=== PATIENT | male | born 1970 | race Hispanic/Latino ===

== ENCOUNTER 2017-03-30 12:38 | Inpatient (IN) | payer OTHER ==
[~2017-03-30] VITALS: Ht 165.1 cm; Wt 85.0 kg
[2017-03-30 13:40] LABS: ADD MIUA? YES; BILIRUBIN NEGATIVE; BLOOD SMALL; COLOR YELLOW ((YELLOW)); GLUCOSE (STRIP) NEGATIVE; KETONES NEGATIVE; LEUKOCYTES NEGATIVE; NITRITE NEGATIVE; PROTEIN (STRIP) 100; SPECIFIC GRAVITY 1.015 (1.000-1.030); UROBILINOGEN 0.2 MG/DL (0.2-1.0)
[2017-03-30 13:52] LABS: BACTERIA RARE /HPF; EPITHELIAL CELLS RARE /HPF; GRANULAR CASTS 0-5 /LPF; MUCUS TRACE /LPF; RED BLOOD CELLS 0-5 /HPF (0-5); UCUL ADDED? NO; WHITE BLOOD CELLS 0-5 /HPF (0-5)
[2017-03-30 13:59] LABS: HEMATOCRIT 48.5 % (38.0-50.0); MCH 30.7 PG (29.0-34.0); MCHC 33.4 G/DL (30.0-36.0); MEAN PLAT.VOLUME 9.2 uM^3 (9.0-12.4); PLATELET COUNT 282 K/uL (156-360); RBC DIS.WIDTH-CV 12.6 % (11.8-14.6); RBC DIS.WIDTH-SD 43.2 % (39-53); RED BLOOD COUNT 5.27 M/uL (4.00-5.50); WHITE BLOOD COUNT 17.1 K/uL (4.1-10.2)
[2017-03-30 14:12] LABS: CHLORIDE 105 mEq/L (99-109); POTASSIUM 3.8 mEq/L (3.7-5.4); SODIUM 140 mEq/L (136-147)
[2017-03-30 14:15] LABS: GLUCOSE 99 mg/dL (70-99)
[2017-03-30 14:16] LABS: ANION GAP 7 MEQ/L (2-14)
[2017-03-30 14:18] LABS: ALKALINE PHOSPHATASE 78 IU/L (3-129); GFR ESTIMATE (CALCULATED) > 59 mL/min/
[2017-03-30 14:20] LABS: UREA NITROGEN (BUN) 10 mg/dL (9-23)
[2017-03-30 14:22] LABS: LIPASE 20 U/L (1.0-51.0)
[2017-03-30 14:31] LABS: TOTAL BILIRUBIN 0.8 mg/dL (0.0-1.0)
[2017-03-30 21:06] VITALS: BP 131/67
[2017-03-31 04:08] VITALS: BP 131/68
[2017-03-31 05:47] LABS: HEMATOCRIT 44.6 % (38.0-50.0); MCH 31.2 PG (29.0-34.0); MCHC 33.4 G/DL (30.0-36.0); MCV 93.3 FL (86-99); MEAN PLAT.VOLUME 9.4 uM^3 (9.0-12.4); PLATELET COUNT 265 K/uL (156-360); RBC DIS.WIDTH-CV 12.6 % (11.8-14.6); RBC DIS.WIDTH-SD 43.8 % (39-53); RED BLOOD COUNT 4.78 M/uL (4.00-5.50); WHITE BLOOD COUNT 12.4 K/uL (4.1-10.2)
[2017-03-31 06:18] LABS: ALKALINE PHOSPHATASE 62 IU/L (3-129); ANION GAP 6 MEQ/L (2-14); CHLORIDE 105 MEQ/L (99-109); GFR ESTIMATE (CALCULATED) > 59 mL/min/; GLUCOSE 85 mg/dL (70-99); POTASSIUM 3.9 MEQ/L (3.7-5.4); SAMPLE HEMOLYSIS CHECK 0; SAMPLE ICTERIC CHECK 0; SAMPLE LIPEMIA CHECK 0; SODIUM 140 MEQ/L (136-147); TOTAL BILIRUBIN 0.7 MG/DL (0.0-1.0); UREA NITROGEN (BUN) 11 mg/dL (9-23)
[2017-03-31 08:10] VITALS: BP 132/67
[2017-03-31 11:01] VITALS: BP 133/67
[2017-03-31 15:30] VITALS: BP 141/65
[2017-03-31 19:28] VITALS: BP 133/91
[2017-03-31 23:54] VITALS: BP 142/74
[2017-04-01 03:19] VITALS: BP 139/70
[2017-04-01 06:35] LABS: RED BLOOD COUNT 4.97 M/uL (4.00-5.50)
[2017-04-01 06:36] LABS: EOSINOPHIL COUNT 0.4 K/uL (0-0.3); HEMATOCRIT 45.7 % (38.0-50.0); IMMATURE GRANULOCYTE (%) 0.6 % (0.0-0.7); IMMATURE GRANULOCYTE COUNT 0.1 K/uL; INSTRUMENT ABS NEUTROPHIL CT 6.2 K/uL; LYMPHOCYTE COUNT 2.5 K/uL (1.0-2.8); MCH 30.2 PG (29.0-34.0); MCHC 32.8 G/DL (30.0-36.0); MEAN PLAT.VOLUME 9.6 uM^3 (9.0-12.4); MONOCYTE COUNT 0.8 K/uL (0-0.8); NEUTROPHIL (%) 61.7 % (45-76); NEUTROPHIL COUNT 6.2 K/uL (1.8-6.4); PLATELET COUNT 292 K/uL (156-360); RBC DIS.WIDTH-CV 12.2 % (11.8-14.6); RBC DIS.WIDTH-SD 41.3 % (39-53)
[2017-04-01 07:01] LABS: ANION GAP 7 MEQ/L (2-14); CHLORIDE 106 MEQ/L (99-109); GFR ESTIMATE (CALCULATED) > 59 mL/min/; GLUCOSE 84 mg/dL (70-99); SAMPLE HEMOLYSIS CHECK 1; SAMPLE ICTERIC CHECK 0; SAMPLE LIPEMIA CHECK 0; SODIUM 140 MEQ/L (136-147); UREA NITROGEN (BUN) 10 mg/dL (9-23)
[2017-04-01 07:03] LABS: POTASSIUM 4.9 MEQ/L (3.7-5.4)
[2017-04-01 07:26] VITALS: BP 142/67
[2017-04-01 11:33] VITALS: BP 134/71
[2017-04-01 16:11] VITALS: BP 145/68
[2017-04-01 19:21] VITALS: BP 135/79
[2017-04-01 23:57] VITALS: BP 151/76
[2017-04-02 03:38] VITALS: BP 135/60
[2017-04-02 07:59] VITALS: BP 147/77
[2017-04-02 11:58] VITALS: BP 148/82
[2017-04-02 16:23] VITALS: BP 136/89
[2017-04-03 00:20] VITALS: BP 142/69
[2017-04-03 07:37] VITALS: BP 139/69
[2017-04-03] MEDS ORDERED: CIPROFLOXACIN500 M1 PO (08:48)
[2017-04-03] MEDS ORDERED: METRONIDAZOLE500 MG PO (08:48)
== END 2017-04-03 10:00 | disposition home or self-care (01) | DRG 392 ==
LOC: EME 12:38 → EDOF 18:31 → 3EAST 18:31 → ENRESERV 18:34 → 3EAST 20:00
PROVIDERS: Internal Medicine; Physician Assistant; Physician Assistant Medical; Surgery
DX: K57.20 Diverticulitis of large intestine with perforation and abscess without bleeding (principal); F17.210 Nicotine dependence, cigarettes, uncomplicated
CPT/HCPCS: 74177; 80048; 80053; 81003; 83630; 83690; 85025; 85027; 87177; 87493; 99281; 99285; J0744; J1644; J7030; S0028; S0030

== ENCOUNTER 2017-05-08 14:58 | Inpatient (IN) | payer OTHER ==
[~2017-05-08] VITALS: Ht 162.6 cm; Wt 83.1 kg
[~2017-05-08 14:58] MED LIST: CIPROFLOXACIN500 M1 PO; METRONIDAZOLE500 MG PO
[2017-05-08 15:52] LABS: ADD MIUA? YES; BILIRUBIN NEGATIVE; BLOOD SMALL; COLOR YELLOW ((YELLOW)); GLUCOSE (STRIP) NEGATIVE; KETONES NEGATIVE; LEUKOCYTES NEGATIVE; NITRITE NEGATIVE; PROTEIN (STRIP) 100; SPECIFIC GRAVITY 1.027 (1.000-1.030)
[2017-05-08 15:55] LABS: BACTERIA NONE SEEN /HPF; EPITHELIAL CELLS RARE /HPF; MUCUS 1+ /LPF; RED BLOOD CELLS 0-5 /HPF (0-5); WHITE BLOOD CELLS 0-5 /HPF (0-5)
[2017-05-08 15:55] LABS: EOSINOPHIL COUNT 0.2 K/uL (0-0.3); HEMATOCRIT 47.4 % (38.0-50.0); IMMATURE GRANULOCYTE (%) 0.4 % (0.0-0.7); IMMATURE GRANULOCYTE COUNT 0.1 K/uL; INSTRUMENT ABS NEUTROPHIL CT 13.9 K/uL; LYMPHOCYTE COUNT 1.6 K/uL (1.0-2.8); MCH 30.2 PG (29.0-34.0); MCHC 32.7 G/DL (30.0-36.0); MCV 92.2 FL (86-99); MEAN PLAT.VOLUME 8.8 uM^3 (9.0-12.4); MONOCYTE (%) 5.7 % (3-12); NEUTROPHIL COUNT 13.9 K/uL (1.8-6.4); PLATELET COUNT 397 K/uL (156-360); RBC DIS.WIDTH-CV 12.2 % (11.8-14.6); RBC DIS.WIDTH-SD 41.9 % (39-53); RED BLOOD COUNT 5.14 M/uL (4.00-5.50); WHITE BLOOD COUNT 16.8 K/uL (4.1-10.2)
[2017-05-08 16:03] LABS: CHLORIDE 102 mEq/L (99-109); SODIUM 140 mEq/L (136-147)
[2017-05-08 16:05] LABS: GLUCOSE 125 mg/dL (70-99)
[2017-05-08 16:06] LABS: ANION GAP 10 MEQ/L (2-14)
[2017-05-08 16:07] LABS: TOTAL BILIRUBIN 0.6 mg/dL (0.0-1.0)
[2017-05-08 16:09] LABS: ALKALINE PHOSPHATASE 83 IU/L (3-129); GFR ESTIMATE (CALCULATED) > 59 mL/min/
[2017-05-08 16:10] LABS: UREA NITROGEN (BUN) 10 mg/dL (9-23)
[2017-05-08 16:12] LABS: LIPASE 15 U/L (1.0-51.0)
[2017-05-08 22:23] VITALS: BP 122/57
[2017-05-09 04:07] VITALS: BP 129/62
[2017-05-09 06:43] LABS: HEMATOCRIT 42.9 % (38.0-50.0); MCH 29.9 PG (29.0-34.0); MCHC 32.6 G/DL (30.0-36.0); MCV 91.7 FL (86-99); MEAN PLAT.VOLUME 8.9 uM^3 (9.0-12.4); PLATELET COUNT 379 K/uL (156-360); RBC DIS.WIDTH-CV 12.2 % (11.8-14.6); RBC DIS.WIDTH-SD 41.5 % (39-53); RED BLOOD COUNT 4.68 M/uL (4.00-5.50); WHITE BLOOD COUNT 15.7 K/uL (4.1-10.2)
[2017-05-09 07:04] LABS: ANION GAP 5 MEQ/L (2-14); CHLORIDE 101 MEQ/L (99-109); GFR ESTIMATE (CALCULATED) > 59 mL/min/; GLUCOSE 106 mg/dL (70-99); POTASSIUM 4.2 MEQ/L (3.7-5.4); SAMPLE HEMOLYSIS CHECK 0; SAMPLE ICTERIC CHECK 0; SAMPLE LIPEMIA CHECK 0; SODIUM 135 MEQ/L (136-147); UREA NITROGEN (BUN) 11 mg/dL (9-23)
[2017-05-09 07:41] VITALS: BP 125/80
[2017-05-09 11:36] VITALS: BP 125/72
[2017-05-09 14:50] LABS: INTER. NORMALIZED RATIO 1.3; PROTHROMBIN TIME 14.8 SEC (10.2-12.9)
[2017-05-09 14:53] LABS: PTT 32.9 SEC (25-37)
[2017-05-09 15:35] VITALS: BP 117/56
[2017-05-09 20:22] VITALS: BP 137/60
[2017-05-10 00:29] VITALS: BP 148/65
[2017-05-10 03:55] VITALS: BP 128/66
[2017-05-10 08:09] LABS: HEMATOCRIT 42.6 % (38.0-50.0); MCH 31.4 PG (29.0-34.0); MCV 92.2 FL (86-99); PLATELET COUNT 402 K/uL (156-360); RBC DIS.WIDTH-CV 12.1 % (11.8-14.6); RBC DIS.WIDTH-SD 41.3 % (39-53); RED BLOOD COUNT 4.62 M/uL (4.00-5.50); WHITE BLOOD COUNT 12.7 K/uL (4.1-10.2)
[2017-05-10 08:10] VITALS: BP 137/72
[2017-05-10 12:11] VITALS: BP 129/78
[2017-05-10 15:55] VITALS: BP 123/76
[2017-05-10 23:58] VITALS: BP 139/67
[2017-05-11 06:45] LABS: HEMATOCRIT 45.8 % (38.0-50.0); MCH 29.6 PG (29.0-34.0); MCHC 32.3 G/DL (30.0-36.0); MCV 91.6 FL (86-99); MEAN PLAT.VOLUME 8.8 uM^3 (9.0-12.4); PLATELET COUNT 423 K/uL (156-360); RBC DIS.WIDTH-CV 11.9 % (11.8-14.6); RBC DIS.WIDTH-SD 40.6 % (39-53); WHITE BLOOD COUNT 7.8 K/uL (4.1-10.2)
[2017-05-11 07:56] VITALS: BP 127/68
[2017-05-11 16:52] VITALS: BP 125/65
[2017-05-11 22:12] VITALS: BP 142/74
[2017-05-12 08:06] VITALS: BP 152/80
[2017-05-12] MEDS ORDERED: FLAGYL500 MG PO (09:48)
[2017-05-12] MEDS ORDERED: CIPRO500 MG PO (09:48)
== END 2017-05-12 14:50 | disposition home or self-care (01) | DRG 392 ==
LOC: EME 14:58 → 3EAST 20:29 → EDOF 20:29 → ENRESERV 20:30 → 3EAST 21:49
PROVIDERS: Physician Assistant; Radiology Diagnostic Radiology; Surgery
PROC: 0W9G3ZX Drainage of Peritoneal Cavity, Percutaneous Approach, Diagnostic (ICD-10-PCS; principal; 2017-05-09)
DX: K57.20 Diverticulitis of large intestine with perforation and abscess without bleeding (principal); F33.9 Major depressive disorder, recurrent, unspecified; F17.210 Nicotine dependence, cigarettes, uncomplicated; I10 Essential (primary) hypertension; J45.909 Unspecified asthma, uncomplicated; D72.829 Elevated white blood cell count, unspecified; K76.0 Fatty (change of) liver, not elsewhere classified; Z88.6 Allergy status to analgesic agent; Z83.3 Family history of diabetes mellitus; Z82.49 Family history of ischemic heart disease and other diseases of the circulatory system
CPT/HCPCS: 49406; 74177; 80048; 80053; 81003; 83690; 85025; 85027; 85610; 85730; 87040; 87070; 87075; 87076; 87205; 93005; 99281; 99285; J1650; J2270; J2405; J2543; J3010; J7030; J7050